=== PATIENT | female | born 1995 | race Caucasian/White ===

== ENCOUNTER 2020-03-20 13:05 | Emergency (ER) | payer OTHER, SELFPAY ==
--- NOTE | ~2020-03-20 | CT_ITS ---
EXAMINATION: CT abdomen pelvis w con DATE: 03/20/2020 15:13 INDICATION: Right lower quadrant abdominal pain. Nausea and diarrhea. TECHNIQUE: Computed tomography (CT) of the abdomen and pelvis was performed with 100 mL Omnipaque 350 intravenous contrast. Automated exposure control and iterative reconstruction technique were employe d. The dose-length product was 589.93 mGy-cm. COMPARISON: None. FINDINGS: The visualized portions of the lung bases are clear without pneumonia or pleural effusion. The heart size is normal. No pericardial effusion. Pectus excavatum is noted. The liver, gallbladder, pancreas, adrenal glands, and kidneys are normal. Calcifications in the spleen are consistent with o ld granulomatous disease. There is a 3.3 cm cyst in right ovary, likely a follicular cyst. There are no dilated loops of bowel. The appendix is not visualized. There are no pathologically enlarged lymph nodes. There is no free intraperitoneal fluid. There is mild lumbar spondylosis. IMPRESSION: 1. 3.3 cm cyst in right ovary, likely a follicular cyst. Reviewed, dictated and finalized at location A.
--- NOTE | ~2020-03-20 | US_ITS ---
EXAMINATION: US right upper quadrant DATE: 03/20/2020 15:06 INDICATION: Right upper quadrant abdominal pain. TECHNIQUE: Multiple grayscale and Doppler ultrasound images of the abdomen were obtained. COMPARISON: CT abdomen and pelvis 03/20/2020 FINDINGS: The visualized portions of the head and body of the pancreas are normal. The liver is nathalia l without focal lesion. There is normal flow in main portal vein. The gallbladder is normal in size a nd contains sludge. No gallstones or gallbladder wall thickening. There was no sonographic [place] sig n. The common duct is normal and measures 3 mm. IMPRESSION: 1. Gallbladder sludge. No evidence of acute cholecystitis. Reviewed, dictated and finalized at location A.
[2020-03-20 13:25] VITALS: BP 114/68; PULSE 92; RESP 18; TEMP 37.3; O2SAT 99
--- NOTE | 2020-03-20 13:54 | ECG_ITS ---
Measurements Intervals [place] Rate: 70 P: 64 AK: 149 QRS: 35 QRSD: 86 T: 14 QT: 374 QTc: 406 Interpretive Statements SINUS RHYTHM NORMAL ECG Electronically Signed On 03-20-2020 15:22:26 CDT by Monty Jackson D.O.
--- NOTE | 2020-03-20 13:56 | ED.ABDPAIN ---
HPI - Abdominal Pain General Chief Complaint: Abdominal Pain Stated Complaint: 24 YO obese female w/ 5 day h/o Right sided abd pain with nausea, and diarrhea that started today. Denies any abd surgeries. Related Data Home Medications Medication Instructions Recorded Confirmed omeprazole 40 mg PO BID 03/20/20 03/20/20 Allergies Allergy/AdvReac Type Severity Reaction Status Date / Time No Known Allergies Allergy Verified 03/20/20 13:23 Review of Systems Review of Systems: All systems reviewed & are unremarkable except as noted in HPI and below Constitutional: Constitutional: Reports as per HPI ENT: Reports system reviewed and no additional complaints, except as documented Cardiovascular: Cardiovascular: Reports no additional cardiovascular complaints Respiratory: Respiratory: Reports no additional respiratory complaints Gastrointestinal: Gastrointestinal: Reports as per HPI, Reports abdominal pain, Reports diarrhea and Reports nausea Genitourinary: Genitourinary: Reports no additional female genitourinary complaints Musculoskeletal: Musculoskeletal: Reports no additional musculoskeletal complaints Integumentary/Breasts: Skin/Breast: Reports system reviewed and no additional complaints, except as docu Neurologic: Reports system reviewed and no additional complaints, except as documented Psychiatric: Psychiatric: Reports no additional psychiatric complaints Endocrine: Endocrine: Reports no additional endocrine complaints Hematologic/Lymphatic: Hematologic/Lymphatic: Reports no additional hematologic/lymphatic complaints Allergic/Immunologic: Allergic/Immunologic: Reports no additional allergic/immunologic complaints FOR[facility]LY [facility] Past Medical History Medical History GERD (gastroesophageal reflux disease) Exam Const: General: no acute distress and alert Orientation/consciousness: patient oriented x3 HENMT: Head: normal to inspection Eyes: Conjunctivae: conjunctivae normal Pupils: Equal, round and reactive pupils present Neck: Neck: normal visual inspection Chest: Chest palpation & inspection: normal inspection of the chest Resp: Effort & Inspection: normal respiratory effort Auscultation: clear to auscultation bilaterally Cardio: Rate: regular rate Rhythm: regular rhythm GI: GI Palp: Yes Soft to palpation and No Rebound tenderness present : General: Yes no CVA tenderness Back/Spine/Pelvis: Back: no CVA tenderness Skin: General skin exam: normal color Neuro: General: patient oriented x3, moves all extremities, no focal motor deficits and CN's II-XI intact bilaterally Extrem: General: normal to inspection Psych: Mental Status: mental status grossly normal Course Course Emergency Course: Reviewed workup with patient. She feels better and wants to go home. Informed her of GB sludge that may warrent further inspection in future. Vital Signs Vital signs: Vital Signs Temperature 99.1 F 03/20/20 13:25 Pulse Rate 92 03/20/20 13:25 Respiratory Rate 18 03/20/20 13:25 Blood Pressure 114/68 03/20/20 13:25 Pulse Oximetry 99 03/20/20 13:25 Temperature 99.1 F 03/20/20 13:25 Pulse Rate 92 03/20/20 13:25 Respiratory Rate 18 03/20/20 13:25 Blood Pressure 114/68 03/20/20 13:25 Pulse Oximetry 99 03/20/20 13:25 MDM - Abdominal Pain Differential Diagnosis Differential diagnosis: Likely abdominal pain, diverticulitis, gastroenteritis, pancreatitis and other (Cholecystitis, Cholelithiasis) Medical Records Attestation: I reviewed the patient's medical records. Lab Data Attestation: I reviewed the patient's lab results. Result diagrams: 03/20/20 14:14 03/20/20 14:14 Labs: Lab Results 03/20/20 03/20/20 03/20/20 Range/Units 14:14 14:14 14:14 WBC 7.5 (4.8-10.8) K/mm3 RBC 4.16 L (4.20-5.40) M/mm3 Hgb 12.1 (12.0-15.0) g/dL Hct 37.4 (35.0-49.0) % MCV
[2020-03-20] MEDS: MAG HYDROX/ALUMINUM HYD/SIMETH 30 ML, PHENobarb/HYOSCY/ATROPINE/SCOP 32.4 MG, LIDOCAINE... PO (14:15)
[2020-03-20] MEDS: SODIUM CHLORIDE 0.9% IV 1,000 ML 999 ML IV CONT (14:15)
[2020-03-20] MEDS: MORPHINE SULFATE 4 MG/ML INJ 2 MG IV PUSH (14:16)
[2020-03-20 14:21] LABS: Basophils Absolute Auto 0.03 K/mm3 (0.00-0.10); Basophils Percent Auto 0.4 % (0.0-1.0); Eosinophils Absolute Auto 0.07 K/mm3 (0.02-0.50); Eosinophils Percent Auto 0.9 % (1.0-6.0); Hematocrit 37.4 % (35.0-49.0); Hemoglobin 12.1 g/dL (12.0-15.0); Immature Granulocyte Absolute 0.03 K/mm3 (0.00-0.00); Immature Granulocyte Percent A 0.4 % (0.0-0.0); Lymphocytes Absolute Auto 1.67 K/mm3 (1.10-4.50); Lymphocytes Percent Auto 22.4 % (18.0-42.0); Mean Corpuscular HGB Conc 32.4 g/dL (32.0-36.0); Mean Corpuscular Hemoglobin 29.1 pg (27.0-31.0); Mean Corpuscular Volume 89.9 fL (78.0-102.0); Mean Platelet Volume 10.7 fl (9.2-11.8); Monocytes Absolute Auto 0.31 K/mm3 (0.10-0.90); Monocytes Percent Auto 4.2 % (2.0-11.0); Neutrophils Absolute Auto 5.4 K/mm3 (1.7-7.2); Neutrophils Percent Auto 71.7 % (50.0-70.0); Platelet Count Result 214 K/mm3 (150-420); Red Blood Count 4.16 M/mm3 (4.20-5.40); Red Cell Distribution Width 12.8 % (11.6-14.4); White Blood Count 7.5 K/mm3 (4.8-10.8)
[2020-03-20 14:22] LABS: Add Urine Microscopic? NO; Appearance Urine Clear (Clear); Bilirubin Urine Negative (Negative); Blood Urine Negative (Negative); Color Urine Yellow (Yellow); Glucose Urine UA Negative (Negative); Ketones Urine Negative (Negative); Leukocyte Esterase Ur Negative LEU/UL (Negative); Nitrate Urine Negative (Negative); Protein Urine Negative (Negative); Urobilinogen Urine 0.2 mg/dL (0.2-1.0); pH Urine 7.5 (5.0-8.0)
[2020-03-20 14:35] LABS: Pregnancy On Board Control Positive; Urine Pregnancy Test Negative
[2020-03-20 14:40] LABS: Partial Thromboplastin Time 28.4 SEC (22.3-31.6); Prothrombin Time 10.4 Seconds (9.64-11.0)
[2020-03-20 14:44] LABS: Alanine Aminotransferase 17 U/L (14-59); Albumin Level 4.1 g/dL (3.4-5.0); Alkaline Phosphatase 116 U/L (46-116); Anion Gap 8 mmol/L (8-16); Aspartate Amino Transferase 13 U/L (15-37); Bilirubin,Total 0.2 mg/dL (0.00-1.00); Blood Urea Nitrogen 4 mg/dL (7-18); Calcium 9.2 mg/dL (8.5-10.1); Carbon Dioxide 27 mmol/L (21-32); Chloride 106 mmol/L (98-108); Estimated CRCL calculation 87 ml/min; Estimated Glomerular Filt Rate > 60; Glucose 93 mg/dL (70-99); Lipase 80 U/L (73-393); Osmolality Calculated 288 mOsm/kg (285-295); Potassium 3.8 mmol/L (3.5-5.1); Sodium 141 mmol/L (136-145); Total Protein 7.9 g/dL (6.4-8.2)
--- NOTE | 2020-03-20 14:49 | PC.NURSE ---
Pt to radiology via wheelchair.
[2020-03-20 14:57] LABS: Troponin I < 0.02 ng/mL (0.00-0.056)
[2020-03-20 16:30] VITALS: BP 115/70; PULSE 80; RESP 16; O2SAT 99
--- NOTE | 2020-03-24 11:14 | PC.NURSE ---
LATE ENTRY This note is being entered to document information to the patient's record. The following information was omitted on [03/20/20], by [Larry LIVINGSTON]. NS INFUSION COMPLETED, 1000ML INFUSED STOP TIME 1500.
== END 2020-03-20 16:42 | disposition home or self-care (01) ==
PROVIDERS: Emergency Provider Family Medicine
DX: K52.9 Noninfective gastroenteritis and colitis, unspecified (principal)
CPT/HCPCS: 36415; 74177; 76705; 80053; 81003; 81025; 83690; 84484; 85025; 85610; 85730; 93005; 96361; 96374; 99283; 99284; A9270; J2270; J7030; Q9965